=== PATIENT | female | born 1990 | race Caucasian/White ===

== ENCOUNTER 2017-08-24 07:17 | Inpatient (IN) | payer BC ==
[~2017-08-24] VITALS: Ht 165.1 cm; Wt 95.5 kg
[~2017-08-24 07:17] MED LIST: BCPILLS PO
[2017-08-24 08:43] VITALS: Ht 165.1 cm; Wt 95.5 kg
[2017-08-24] MEDS ORDERED: PRENTAB26 PO (08:48)
[2017-08-24] MEDS ORDERED: LACTATED RINGER'S 1000ML 1,000 ML IV PRN (09:14)
[2017-08-24] MEDS ORDERED: MISOPROSTOLTAB 50 MCG TAB PO ONE (09:15)
[2017-08-24 09:48] LABS: HEMATOCRIT 38.3 % (37-47); MEAN CELL VOLUME 89.7 fL (80-100); MEAN CORPUSCULAR HGB CONC 33.4 g/dl (32-36); MEAN PLATELET VOLUME 10.8 fL (7.4-10.4); PLATELET COUNT 212 K/uL (130-400); RED BLOOD COUNT 4.27 M/uL (4.2-5.4); WHITE BLOOD COUNT 10.78 K/uL (4.8-10.8)
[2017-08-24] MEDS ORDERED: LACTATED RINGER'S 1000ML 500 ML IV PRN ×2 (14:52→19:38)
[2017-08-24] MEDS ORDERED: OXYTOCIN 30 UNITS/500ML NSS IV PRN (15:00)
[2017-08-24] MEDS: LACTATED RINGER'S 1000ML 1,000 ML IV SCH ×2 (18:06→19:54)
[2017-08-24] MEDS ORDERED: FENTANYL 2MCG/ML ROPIV 1.25MG/ML 100ML BAG EPI ONE (18:55)
[2017-08-24] MEDS ORDERED: BUPIVACAINE 0.25% 30 ML VIAL ONE (18:55)
[2017-08-24] MEDS ORDERED: FENTANYL CITRATE INJ 50 MCG/1 ML 2 ML VIAL ONE (18:55)
[2017-08-24] MEDS ORDERED: EpHEDrine SULFATE INJ 50 MG/ML AMP ONE (18:55)
[2017-08-24] MEDS ORDERED: NALOXONE HCL INJ 0.4 MG/1 ML VIAL/CARP IV PRN (19:45)
[2017-08-24] MEDS ORDERED: EpHEDrine SULFATE INJ 50 MG/ML AMP IV PRN (19:45)
[2017-08-25] VITALS (13 sets, daily range): BP systolic 111–117; BP diastolic 69–79; PULSE 90–111; TEMP 36.7–37.2; O2SAT 95–100
[2017-08-25] MEDS: FENTANYL 2MCG/ML ROPIV 1.25MG/ML 100ML BAG EPI PRN ×4 (03:18→09:14)
[2017-08-25] MEDS: LACTATED RINGER'S 1000ML 1,000 ML IV SCH (03:58)
[2017-08-25] MEDS ORDERED: CITRIC ACID/SODIUM CITRATE 15 ML UDC ONE (08:55)
[2017-08-25] MEDS ORDERED: LACTATED RINGER'S 1000ML 1,000 ML IV SCH (08:58)
[2017-08-25] MEDS ORDERED: CITRIC ACID/SODIUM CITRATE 15 ML UDC PO ONE (09:00)
[2017-08-25] MEDS ORDERED: MoRPHine SULFATE PF 1 MG/ML 10 ML AMP/VIAL ONE (09:22)
[2017-08-25] MEDS ORDERED: CEFAZOLIN IV 3,000 MG in SYRINGE 0 ML IV ONE (09:30)
[2017-08-25] MEDS ORDERED: ESMOLOL HCL 10 MG/ML 10 ML VIAL ONE (10:53)
[2017-08-25] MEDS ORDERED: PROPOFOL IV EMULSION 10 MG/ML 20 ML VIAL IV ONE (10:53)
[2017-08-25] MEDS ORDERED: ONDANSETRON INJ 2 MG/ML 2 ML VIAL ONE (10:53)
[2017-08-25] MEDS ORDERED: OXYTOCIN INJ 10 UNITS/ML VIAL ONE ×4 (10:53)
[2017-08-25] MEDS ORDERED: METOCLOPRAMIDE HCL INJ 5 MG/ML 2 ML VIAL ONE (10:53)
[2017-08-25] MEDS ORDERED: HYDROCORTISONE ACETATE 25 MG SUPP PR PRN (11:00)
[2017-08-25] MEDS ORDERED: MAGNESIUM HYDROXIDE SUSP 30 ML UDC PO PRN (11:00)
[2017-08-25] MEDS ORDERED: DIPHTHERIA/TETANUS/PERTUSSIS 0.5 ML SYR/VIAL IM. ONE (11:00)
[2017-08-25] MEDS ORDERED: LANOLIN OINT EXT PRN ×2 (11:00)
[2017-08-25] MEDS ORDERED: BENZOCAINE 20% AER SPR 82.5 GM CAN EXT PRN (11:00)
[2017-08-25] MEDS ORDERED: SENNA 8.6 MG TAB PO PRN (11:00)
[2017-08-25] MEDS ORDERED: SUPERCREAM 0.870 % 15GM JAR EXT PRN (11:00)
[2017-08-25] MEDS ORDERED: NALOXONE HCL INJ 1 MG in SODIUM CHLORIDE 0.9% 1000ML 1,000 ML IV PRN ×4 (11:05)
[2017-08-25] MEDS ORDERED: SODIUM CHLORIDE 0.9% 1000ML 1,000 ML IV PRN (11:05)
[2017-08-25] MEDS ORDERED: NALOXONE HCL INJ 0.08 MG in SYRINGE 1.8 ML IV PRN (11:05)
[2017-08-25] MEDS ORDERED: LACTATED RINGER'S 1000ML 500 ML IV PRN (11:05)
--- NOTE | 2017-08-25 11:08 | Anesthesia Procedure Note ---
Anesthesia Epidural Removal Nt Date & Time Aug 25, 2017 at 11:07 Notes Mental Status: alert / awake / arousable, participated in evaluation Nausea / Vomiting: adequately controlled Pain: adequately controlled Airway Patency, RR, SpO2: stable & adequate BP & HR: stable & adequate Hydration State: stable & adequate Neuraxial Anesthesia: was administered Anesthetic Complications: no major complications apparent, pt satisfied with anesthetic care Epidural: removed without complications, with tip intact
[2017-08-25] MEDS ORDERED: PROMETHAZINE HCL INJ 12.5 MG in SODIUM CHLORIDE 0.9% 50ML 50 ML IV PRN ×4 (11:15)
[2017-08-25] MEDS ORDERED: DiphenhydrAMINE HCL 50 MG/ML VIAL IV PRN (11:15)
[2017-08-25] MEDS ORDERED: NALOXONE HCL 0.4 MG/1 ML VIAL/CARP IV PRN (11:15)
[2017-08-25] MEDS ORDERED: LABETALOL HCL IV 5 MG/ML 20ML IV PRN (11:15)
[2017-08-25] MEDS ORDERED: ATROPINE SULFATE 0.1 MG/ML 5ML SYR IV PRN (11:15)
[2017-08-25] MEDS ORDERED: ONDANSETRON INJ 2 MG/ML 2 ML VIAL IV PRN ×2 (11:15)
[2017-08-25] MEDS ORDERED: KETOROLAC TROMETHAMINE 30 MG/ML VIAL IV. PRN ×2 (11:15)
[2017-08-25] MEDS ORDERED: MoRPHine SULFATE PF 1 MG/ML 10 ML AMP/VIAL EPI PRN (11:15)
[2017-08-25] MEDS ORDERED: NALBUPHINE HCL INJ 10 MG/ML AMP IV PRN (11:15)
[2017-08-25] MEDS ORDERED: PHENYLEPHRINE 100MCG/ML 5ML SYR IV PRN (11:15)
[2017-08-25] MEDS ORDERED: NO NARCOTICS OR SEDATIVES SCH (11:15)
[2017-08-25] MEDS ORDERED: EpHEDrine SULFATE INJ 50 MG/ML AMP IV PRN (11:15)
[2017-08-25] MEDS ORDERED: MEPERIDINE HCL 25 MG/ML CARP IV PRN ×2 (11:15)
--- NOTE | 2017-08-25 11:15 | [facility] Post Operative Brief Note ---
Immediate Operative Summary Operative Date Aug 25, 2017. Pre-Operative Diagnosis 1. IUP at 40 weeks 2. Failure to descend Post-Operative Diagnosis Same Procedure(s) Performed Primary low transverse caesarean section with the of a live male child at 1004. Surgeon Dr. Lyn Vascular Technologist Sonographer Surgeon(s) Fabby Chen RN Estimated Blood Loss 800ml Findings Patient delivered a viable male infant in the vertex position via PLTCS at 1004 on 08/25/17. APGARs were 8 at 1 minute and 9 at 5 minutes weighing 8 lbs 11 oz. Cord blood gases and cord blood was obtained. An intact placenta with a 3 VC delivered manually and sent to pathology. Grossly normal uterus and bilateral tubes and ovaries noted. Both patient and baby tolerated the surgery well and was sent to recovery with stable vital signs. Fluids (cc crystalloids) 2000 Specimens A: Placenta-exam B: Cord Blood C: Cord Gases Drains Duran to [place] Complication(s) None Disposition L&D
[2017-08-25] MEDS ORDERED: OXYTOCIN INJ 30 UNITS in LACTATED RINGER'S 1000ML 1,000 ML IV SCH (11:30)
--- NOTE | 2017-08-25 13:08 | Anesthesiology Progress Note ---
Anesthesia Post Op Note Date & Time Aug 25, 2017 at 13:07 Notes Mental Status: alert / awake / arousable, participated in evaluation Pt Amnestic to Procedure: Yes Nausea / Vomiting: adequately controlled Pain: adequately controlled Airway Patency, RR, SpO2: stable & adequate BP & HR: stable & adequate, see Notes Hydration State: stable & adequate Neuraxial Anesthesia: was administered, sensory block is resolving Anesthetic Complications: no major complications apparent The patient is doing well. She is slightly tachycardic but less then she was postoperatively. All other vitals are stable and she is comfortable.
[2017-08-25] MEDS: SIMETHICONE 80 MG CHEW PO SCH ×3 (13:30→19:52)
[2017-08-25] MEDS: DOCUSATE SODIUM 100 MG CAP PO SCH (19:52)
--- NOTE | 2017-08-25 19:56 | OPERATIVE REPORT ---
DATE OF OPERATION: 08/25/2017 PREOPERATIVE DIAGNOSES: 1. Intrauterine at 40 weeks and 4 days gestation. 2. Failure to progress. POSTOPERATIVE DIAGNOSES: 1. Intrauterine at 40 weeks and 4 days gestation. 2. Failure to progress. OPERATIVE PROCEDURE: Primary low transverse section. SURGEON: Dr. Lyn. CASH REGISTER BALANCER: Fabby Hartmann RN ANESTHESIA: Epidural bolus. ESTIMATED BLOOD LOSS: 800 mL IV FLUIDS: 2000 mL crystalloids. SPECIMENS: Placenta, cord blood and cord gases. DRAINS: Duran to gravity. COMPLICATIONS: None. DISPOSITION: To labor and delivery. FINDINGS: The patient delivered a viable male in the vertex position at 10:04 a.m. via primary low transverse section. Apgars were 7 at 1 minute and 9 at 5 minutes, weighing 8 pounds 11 ounces. Please see rn rehabilitation's notes for further baby assessment. An intact placenta with 3-vessel cord was delivered manually and sent to pathology. Cord blood and cord blood gases were obtained. Normal uterus and bilateral tubes and ovaries were noted. The patient and baby tolerated the surgery well and were in recovery with stable vital signs. INDICATIONS FOR PROCEDURE The patient is a 27-year-old 2, para 0 at 40 weeks and 4 days gestation, who was admitted to labor and delivery on the morning of 08/24/2017 for a scheduled induction of labor secondary to postdates. She received one dose of Cytotec 25 mcg intravaginally and Pitocin afterwards for labor induction. She received an epidural for anesthesia. Artificial rupture of membranes was performed at 21:52 with a large amount of clear amniotic fluid noted. She reached complete dilation at 3:06 a.m. on 08/25/2017. She pushed for greater than 4 hours without further descent. She reached complete dilation, 100% effaced and +2 station. Despite excellent pushing efforts, there was no further descent of the baby. Therefore, a primary section was recommended and the patient and agreed. Benefits, risks and alternatives were discussed and informed consent was obtained. OPERATIVE PROCEDURE IN DETAIL: The patient was taken to the operating room and was placed in a dorsal supine position with left lateral tilt. Her epidural was bolused. She was then prepped and draped in a manner appropriate for the procedure. Once anesthesia was found to be adequate, a Pfannenstiel skin incision was made 2 fingerbreadths above the pubic symphysis and was carried down through to a layer of the rectus fascia. Fascia was nicked in the midline and extended bilaterally with curved Patel scissors. The superior aspect of the fascial incision was grasped with Cj clamps, elevated, and the rectus muscles were dissected off with the use of the electrocautery and curved Patel scissors. Likewise, the inferior aspect of the fascial incision was grasped with Cj clamps, elevated, and the rectus muscles were dissected off with the use of curved Patel scissors. Rectus muscles were in midline. The peritoneum was entered bluntly and extended cephalocaudally with gentle traction. An Logan retractor was then placed within the abdomen and the bladder blade was also placed within the abdomen. The vesicouterine peritoneum was then identified and a bladder flap was created with the Metzenbaum scissors and digital traction. The bladder flap was reincorporated beneath the Shantelle blade. A transverse incision was then made on the uterus and extended bilaterally with bandage scissors. The head was identified. It was noted that the head was deep within the pelvis. Once the suction was broken, the baby's head was delivered through the incision along with the rest of the body. Baby was bulb suctioned at delivery. Cord was clamped x2 and cut. The baby was immediately handed to an awaiting rn rehabilitation for further evaluation and management. Please see their notes for further baby assessment. Cord blood gases and cord blood was obtained. An intact placenta with 3-vessel cord was delivered manually and sent to pathology. The uterus was then exteriorized and wrapped in a moist laparotomy sponge. The uterus was then cleared of any trailing membranes and debris with the laparotomy sponge. The uterine incision was then grasped with ringed forceps at 4 quadrants and was closed with 0 Vicryl suture in a continuous locking fashion. A second layer of 0 Vicryl suture was used in imbricating fashion to ensure hemostasis. The posterior cul-de-sac was then irrigated with warm saline solution. Inspection of the uterine incision was again noted to be hemostatic. The bladder flap was reapproximated to the lower uterine segment with 3-0 Vicryl suture in continuous running fashion. Excellent hemostasis was noted. Seprafilm was placed over the incision and along the fundus of the uterus. The uterus was then placed back within its normal anatomic position within the abdomen. The Logan retractor was then removed. The peritoneum was then grasped with Jenny clamps at 4 quadrants and was closed with 2-0 Vicryl suture in continuous running fashion. The rectus fascia was then closed with 0 Vicryl suture in continuous running fashion. The incision was then irrigated. The subcutaneous tissue was then reapproximated with 2-0 Vicryl suture in continuous running fashion. The skin was then closed with maura. Excellent hemostasis was noted through all tissue layers. Both patient and baby tolerated the procedure well and were sent to recovery with stable vital signs. All sponge and instrument counts were found to be correct x2. I attest to the content of the Intraoperative Record and any orders documented therein. Any exceptions are noted below. JUAN CARLOSD
[2017-08-26] VITALS (7 sets, daily range): BP systolic 99–121; BP diastolic 63–76; PULSE 82–105; TEMP 36.6–37; O2SAT 95–98
[2017-08-26] MEDS: LACTATED RINGER'S 1000ML 1,000 ML IV SCH (00:07)
[2017-08-26] MEDS ORDERED: ONDANSETRON INJ 2 MG/ML 2 ML VIAL IV PRN (03:00)
[2017-08-26] MEDS ORDERED: OXYCODONE/ACETAMINOPHEN 5-325 TAB PO PRN (03:00)
[2017-08-26] MEDS ORDERED: DC INTRASPINAL MORPHINE SCH (03:00)
[2017-08-26] MEDS ORDERED: KETOROLAC TROMETHAMINE 30 MG/ML VIAL IV. PRN (03:00)
[2017-08-26] MEDS ORDERED: DiphenhydrAMINE HCL 50 MG/ML VIAL IV PRN (03:00)
[2017-08-26] MEDS: OXYCODONE/ACETAMINOPHEN 5-325 TAB PO PRN ×3 (05:23→21:43)
[2017-08-26] MEDS: IBUPROFEN 600 MG TAB PO PRN ×3 (05:24→21:42)
[2017-08-26] MEDS ORDERED: CEFAZOLIN IV 3,000 MG in DEXTROSE 5% 50ML 50 ML IV SCH (06:00)
[2017-08-26 07:26] LABS: BASO % 0.1 %; BASO ABS # 0.02 K/uL (0-0.2); COMPLETE YES; EOS % 0.2 %; HEMATOCRIT 30.1 % (37-47); IG% 0.3 %; LYMPH % 9.6 %; LYMPH ABS # 2.02 K/uL (1.2-3.4); MEAN CELL VOLUME 89.3 fL (80-100); MEAN CORPUSCULAR HEMOGLOBIN 29.4 pg (25-34); MEAN CORPUSCULAR HGB CONC 32.9 g/dl (32-36); MEAN PLATELET VOLUME 10.7 fL (7.4-10.4); MONO % 5.9 %; NEUT % 83.9 %; PLATELET COUNT 192 K/uL (130-400); RED BLOOD COUNT 3.37 M/uL (4.2-5.4); WHITE BLOOD COUNT 21.09 K/uL (4.8-10.8)
[2017-08-26] MEDS: SIMETHICONE 80 MG CHEW PO SCH ×4 (08:18→21:42)
[2017-08-26] MEDS: PRENATAL VITAMIN TAB PO SCH (08:18)
[2017-08-26] MEDS: DOCUSATE SODIUM 100 MG CAP PO SCH ×2 (08:18→21:41)
[2017-08-26] MEDS: FERROUS SULFATE 325 MG TAB PO SCH (08:18)
--- NOTE | 2017-08-26 11:45 | OB/GYN Progress Note ---
FLASH WELDER Progress Note Date of Service Aug 26, 2017. Subjective conversation w/ patient, physical exam Ambulation: ambulating normally Voiding: no voiding problems Passing Gas: Yes Diet Tolerance: Clear Liquids Lochia: Small Feeding Type: Breast Feeding Pain: 2/10 Notes: Doing well. Pain well controlled. Tolerating liquids, +flatus, -BM. Ambulating without difficulty. Lochia minimal. Incision clean/dry/intact. Objective Vital Signs Date Time Temp Pulse Resp B/P (MAP) Pulse Ox O2 Delivery O2 Flow Rate FiO2 08/26/17 07:40 36.8 82 18 99/63 (75) 97 Room Air 08/26/17 07:40 97 Room Air 08/26/17 04:45 36.9 98 18 103/65 (78) 97 Room Air 08/26/17 03:03 18 96 08/26/17 02:00 18 96 08/26/17 01:00 18 95 08/26/17 00:10 18 96 08/26/17 00:10 37.0 91 18 116/72 (87) 96 Room Air 08/26/17 00:10 96 Room Air 08/25/17 23:00 18 95 08/25/17 22:30 16 99 08/25/17 21:30 16 100 08/25/17 20:30 16 99 08/25/17 20:10 36.7 92 16 115/79 (91) 100 Room Air 08/25/17 19:30 16 100 08/25/17 18:30 16 100 08/25/17 17:30 16 100 08/25/17 16:30 15 98 08/25/17 16:00 37.2 90 16 111/69 (83) 97 Room Air 08/25/17 16:00 Room Air 08/25/17 15:30 16 97 08/25/17 14:30 18 96 08/25/17 13:30 95 Room Air 08/25/17 13:30 37.1 111 20 117/70 (86) 95 Room Air 08/25/17 13:30 20 95 Physical Exam General Appearance: WELL-APPEARING Respiratory/Chest: chest non-tender, lungs clear Cardiovascular: regular rate, rhythm Abdomen: normal bowel sounds, soft Fundus: Firm Incision Description: Clean, Dry & Intact Extremities: normal range of motion, non-tender, no calf tenderness Laboratory Results Last 24 Hours Test 08/26/17 06:51 White Blood Count 21.09 K/uL Red Blood Count 3.37 M/uL Hemoglobin 9.9 g/dL Hematocrit 30.1 % Mean Corpuscular Volume 89.3 fL Mean Corpuscular Hemoglobin 29.4 pg Mean Corpuscular Hemoglobin Concent 32.9 g/dl Platelet Count 192 K/uL Mean Platelet Volume 10.7 fL Neutrophils (%) (Auto) 83.9 % Lymphocytes (%) (Auto) 9.6 % Monocytes (%) (Auto) 5.9 % Eosinophils (%) (Auto) 0.2 % Basophils (%) (Auto) 0.1 % Neutrophils # (Auto) 17.70 K/uL Lymphocytes # (Auto) 2.02 K/uL Monocytes # (Auto) 1.25 K/uL Eosinophils # (Auto) 0.04 K/uL Basophils # (Auto) 0.02 K/uL RDW Standard Deviation 46.6 fL RDW Coefficient of Variation 14.2 % Immature Granulocyte % (Auto) 0.3 % Immature Granulocyte # (Auto) 0.06 K/uL Assessment and Plan Post-Op Day Number: 1 Continue Routine Care: -Incision c/d/i -H&H stable this morning with Hgb 9.9 -Advance diet and activity as tolerated. -Continue routine postop care
[2017-08-26] MEDS ORDERED: BISACODYL 5 MG TABEC PO ONE (22:00)
[2017-08-27] VITALS: BP 108/67; PULSE 81; TEMP 36.7; O2SAT 98
[2017-08-27 06:13] LABS: HEMATOCRIT 25.8 % (37-47)
[2017-08-27] MEDS: IBUPROFEN 600 MG TAB PO PRN ×4 (06:17→20:32)
[2017-08-27] MEDS: OXYCODONE/ACETAMINOPHEN 5-325 TAB PO PRN ×4 (06:17→20:33)
[2017-08-27] MEDS: PRENATAL VITAMIN TAB PO SCH (07:44)
[2017-08-27] MEDS: DOCUSATE SODIUM 100 MG CAP PO SCH ×2 (07:44→20:32)
[2017-08-27] MEDS: SIMETHICONE 80 MG CHEW PO SCH ×4 (07:44→20:32)
[2017-08-27] MEDS: FERROUS SULFATE 325 MG TAB PO SCH (07:44)
[2017-08-27 07:55] VITALS: O2SAT 98
--- NOTE | 2017-08-27 09:30 | Surgery Progress Note ---
Surgery Progress Note Date of Service Aug 27, 2017. Subjective Post OP Day: 2 + feeling well, + ambulating, + flatus, + pain controlled, + diet (Tolerating PO food and Meds), No complaints, No chest pain, No SOB, No bowel movement, No using RADIAGRAPH OPERATOR, No nausea, No vomiting Objective Vital Signs: Date Time Temp Pulse Resp B/P (MAP) Pulse Ox O2 Delivery O2 Flow Rate FiO2 08/27/17 07:55 98 Room Air 08/27/17 00:00 Room Air 08/27/17 00:00 36.7 81 16 108/67 (81) 98 Room Air 08/26/17 16:10 98 Room Air 08/26/17 16:10 36.6 105 20 121/76 (91) 98 Room Air General Appearance: WD/WN, no apparent distress Head: normocephalic, atraumatic Neck: supple, no adenopathy, thyroid normal, no JVD, no carotid bruits, trachea midline Respiratory/Chest: chest non-tender, lungs clear, normal breath sounds, no respiratory distress, no accessory muscle use Cardiovascular: regular rate, rhythm, no edema, no gallop, no JVD, no murmur Abdomen: normal bowel sounds, non tender, non distended, soft, no organomegaly , no pulsatile mass Incision(s): clean, dry, intact, no erythema, no drainage Extremities: normal range of motion, non-tender, normal inspection, no pedal edema, no calf tenderness, normal capillary refill, pelvis stable Laboratory Results: Results Past 24 Hours Test 08/27/17 06:00 Range/Units Hemoglobin 8.3 12.0-16.0 g/dL Hematocrit 25.8 37-47 % Assessment & Plan c/sec day #2 Pt doig well anticipate disch tomorrow
[2017-08-27] MEDS ORDERED: BISACODYL 10 MG SUPP PR PRN (11:00)
[2017-08-27 15:52] VITALS: O2SAT 98
[2017-08-27 23:30] VITALS: BP 146/88; PULSE 90; TEMP 36.7
[2017-08-28] MEDS: OXYCODONE/ACETAMINOPHEN 5-325 TAB PO PRN ×2 (03:49→09:04)
[2017-08-28] MEDS: IBUPROFEN 600 MG TAB PO PRN ×2 (03:49→09:05)
[2017-08-28 07:40] VITALS: BP 114/76; PULSE 71; TEMP 36.6
--- NOTE | 2017-08-28 07:59 | Surgery Progress Note ---
Surgery Progress Note Date of Service Aug 28, 2017. Subjective Post OP Day: 2 + feeling well, + ambulating, + flatus, + pain controlled, + diet (Tolerating PO food and meds), No complaints, No chest pain, No SOB, No bowel movement, No using PARTS LISTER, No nausea, No vomiting Objective Vital Signs: Date Time Temp Pulse Resp B/P (MAP) Pulse Ox O2 Delivery O2 Flow Rate FiO2 08/27/17 23:30 Room Air 08/27/17 23:30 36.7 90 18 146/88 08/27/17 15:52 98 Room Air General Appearance: WD/WN, no apparent distress Head: normocephalic, atraumatic Neck: supple, no adenopathy, thyroid normal, no JVD, no carotid bruits, trachea midline Respiratory/Chest: chest non-tender, lungs clear, normal breath sounds, no respiratory distress, no accessory muscle use Cardiovascular: regular rate, rhythm, no edema, no gallop, no JVD, no murmur Abdomen: normal bowel sounds, non tender, non distended, soft, no organomegaly , no pulsatile mass Incision(s): clean, dry, intact, no erythema, no drainage Extremities: normal range of motion, non-tender, normal inspection, no pedal edema, no calf tenderness, normal capillary refill, pelvis stable Assessment & Plan c/sec day #3 Pt doig well disch home with instructions c/sec day #2 Pt doig well anticipate disch tomorrow
[2017-08-28] MEDS ORDERED: MTR600X PO (08:02)
[2017-08-28] MEDS ORDERED: FRRS300 PO (08:02)
[2017-08-28] MEDS ORDERED: OXYC-57 PO (08:02)
[2017-08-28] MEDS ORDERED: CLC100 PO (08:02)
--- NOTE | 2017-08-28 08:03 | Discharge Instructions ---
Discharge Instructions Date of Service Aug 28, 2017. Admission Reason for Admission: Induction Discharge Discharge Diagnosis / Problem: c/sec post op Discharge Goals Goal(s): Routine recovery after Activity Recommendations Activity Limitations: as noted below ACTIVITY RECOMMENDATIONS: * Gradual return to full activity over the next 2-3 weeks. * No lifting - nothing heavier than baby over the next 2-3 weeks. * Do not engage in vigorous exercise, sexual activity or sports until cleared by your physician. * Do not drive or operate any motorized equipment until cleared by your physician. * You may shower/bathe daily. BREAST CARE: If you are not breast feeding: * Wear a supportive bra 24 hours a day for one to two weeks. * Avoid stimulating your breasts and nipples as much as possible during the first few weeks after delivery. * When taking a shower, have the warm water hit your back, not breasts. * When your breasts feel full, apply ice packs. Usually three to four times a day helps ease the discomfort. * Take a mild pain medication (Tylenol/Motrin) when you are uncomfortable. If breast feeding: * Use breast milk to lubricate nipples. Lansinoh cream may be used for sore nipples. You do not need to remove cream prior to breast feeding. If using a different brand of cream, check the label for directions regarding removal of cream prior to nursing. * Wear a supportive bra. * If having problems with breasts or breast feeding, call a medical cost consultant or your health care provider. OVER THE COUNTER MEDICATION: * For discomfort or pain, you may use Acetaminophen (Tylenol), Ibuprofen (Advil ), or Naproxen (Aleve) following the package directions. * For constipation you may use Colace following the package directions. SPECIAL CARE INSTRUCTIONS: When you are discharged from the hospital, it is important for you to follow the instructions listed below: * During the first week at home, you should be able to care for yourself and your baby. In addition, the usual light household activities are encouraged. * Limit your activities to the way you feel. Do not try to clean the house or move furniture. Be sensible. * If you actively engage in sports and have done so up until the time of your delivery, you may resume these activities as soon as you feel able. This may take up to one month or even longer. Use good judgment. * Continue to take your vitamins for at least six weeks after the of your baby. * Your diet need not be limited unless you were on a special diet before your delivery. Breast-feeding mothers need around 2500 calories per day and at least 64-80 ounces of fluid per day (8 to 10 glasses). * You should eat foods from the four major food groups. Crash diets or fad diets are to be avoided. Eating lean meats, fresh fruits and vegetables, low-fat dairy products, high fiber foods and a regular exercise program, will help you get back to your pre- weight without putting your health at risk. * Constipation is sometimes a problem after delivery. Take a mild laxative as needed. If breast feeding, Milk of Magnesia is acceptable to use. You may use a suppository or Fleets enema if no episiotomy. * A daily shower or tub bath is suggested. Be sure to thoroughly and gently dry the perineum. * A bloody vaginal discharge will usually continue until around four weeks post . A small amount of bleeding may continue for as long as six weeks. Vaginal discharge changes from the bright red bleeding after delivery to pink then brownish and finally yellowish-pink before becoming white and disappearing. * Bleeding may increase with activity. Your first period may come in 4-8 weeks. If you are breast feeding, your period may be delayed even longer. * Alex (sex) can begin whenever both you and your partner feel comfortable and do not have any form of genital infection. It is recommended that you wait at least six weeks for internal and external healing to occur. If you have questions, please talk to your health care practitioner. A condom should be used to prevent infection and . * Foreplay, gentle intercourse and lubrication is very important the first several times to prevent pain. A water-based lubricant such as K-Y jelly or Astroglide may be used. * Tampons and/or Douching should be avoided until after six weeks check-up. * If you have RH negative blood and your baby is RH positive, you will receive RHOGAM by injection prior to discharge. The nurse will give you a card to keep with you that has the date and place that you received RHOGAM after delivery. * During your care, you had a Rubella screen done to check for the presence of rubella antibodies in your blood. If your test was negative, you will receive a Rubella vaccine prior to discharge. This vaccine may cause a fever, soreness at the injection site and flu-like symptoms. If these symptoms persist, notify your health care practitioner. is not advised for three months after a Rubella vaccine. * Verbalizes understanding of car seat law as reviewed with patient nursing. * Car Seat hand-out given and reviewed with patient by nursing. * Shaken baby information reviewed with patient by nursing. Call you doctor if: * Heavy bleeding (saturating several pads an hour) or passing clots the size of your fist. * A fever >101 degrees F (38.3 degrees C) on two occasions four hours apart and /or chills. * Unusual pain in the pelvic or vaginal areas. Pain should improve each day . * Call the doctor for any increased redness, drainage or swelling around the incision and any pain unrelieved by prescribed pain medication. * Any signs or symptoms of phlebitis (possible blood clots forming in the veins ): leg pain, warm, red or swollen area on leg. * "Baby Blues" lasting longer than two weeks. If you have any questions or concerns, call your health care practitioner at . FOLLOW-UP VISIT: * Incision check (staple removal) in 1 week. Please call doctor's office at to set up appointment. * Please call the office at to schedule a 6 week examination. It is important you keep this appointment. * It is important for you to make arrangements for either yearly or twice yearly check-ups thereafter. . Current Hospital Diet Patient's current hospital diet: Regular OB Diet Discharge Diet Recommended Diet: Regular Diet Procedures Procedures Performed: Primary low transverse caesarean section with the of a live male child at 1004. Pending Studies Studies pending at discharge: no Medical Emergencies . Who to Call and When: Medical Emergencies: If at any time you feel your situation is an emergency, please call [phone] immediately. . Non-Emergent Contact Non-Emergency issues call your: Specialist . . "Provider Documentation" section prepared by Zheng Collins. . VTE Core Measure Inpt VTE Proph given/why not?: Treatment not indicated
[2017-08-28] MEDS: DOCUSATE SODIUM 100 MG CAP PO SCH (09:01)
[2017-08-28] MEDS: SIMETHICONE 80 MG CHEW PO SCH (09:01)
[2017-08-28] MEDS: PRENATAL VITAMIN TAB PO SCH (09:01)
[2017-08-28] MEDS: FERROUS SULFATE 325 MG TAB PO SCH (09:01)
[2017-08-28 12:30] VITALS: BP_DIAS 76; PULSE 71; TEMP 36.6
== END 2017-08-28 13:15 | disposition home or self-care (01) | DRG 766 ==
LOC: C.LD 07:17 → C.OBG 08-25 13:15
PROVIDERS: ADMIT Obstetrics & Gynecology; ATTEND Obstetrics & Gynecology
PROC: 10D00Z1 Extraction of Products of Conception, Low, Open Approach (ICD-10-PCS; principal; 2017-08-25 09:05)
DX: O48.0 Post-term pregnancy (principal); O66.40 Failed trial of labor, unspecified; O69.81X1 Labor and delivery complicated by cord around neck, without compression, fetus 1; Z37.0 Single live birth; Z3A.40 40 weeks gestation of pregnancy

== ENCOUNTER 2020-10-10 20:38 | Inpatient (IN) ==
[2020-10-10] MEDS ORDERED: OXYTOCIN 30 UNITS/500 ML BAG IV PRN (21:26)
--- NOTE | 2020-10-10 21:40 | History & Physical Report ---
Date of Service October 10, 2020 Assessment & Plan (1) History of delivery: Patient is a 30-year-old -0-0-1 at 38 weeks and 3 days of gestation presented in active labor with regular contractions contractions change Vital signs stable afebrile GBS negative heart rate reassuring Patient has questions about TOLAC/ versus repeat . I gave her the consent with information from [employer], with risks and benfits of each Understands the risk of uterine furpture, hypoxia , even She read all lines and decided for TOLAC/ She initialed the risks and signed the informed consent Plan to admit, monitor, IVF, AROM and epidural when needed She declined epidural now (2) Active labor at term: (3) Uterine contractions at greater than 20 weeks of gestation: History of Present Illness Primary Care Provider: Michael Burris MD Patient is a 30-year-old at 38 weeks and 2 days of gestation. Has been feeling contractions since 6:20 PM, got more closer and regular every 5 min, lasting for 30 sec, pain is 7/10 Small mucus d/c No VB Good movements No fever, chills, nausea or vomiting, no headaches, change in her vision. No COVID symptoms, no recent contact Previous except history of prior . To arrest of descent in second stage. She pushed for 6 hours had to have primary and delivered 8 pounds 11 ounces viable male in 2016. She plans and scheduled for on October 19. Rh- Allergies Allergy/AdvReac Type Severity Reaction Status Date / Time cefaclor Allergy Mild Unknown Unverified 03/31/19 15:17 Home Medications Medication Instructions Recorded Confirmed Type 1 cap PO DAILY 10/10/20 10/10/20 History Patient History Medical History delivery delivered 2016 Surgical History H/O tooth extraction 2002 History of placement of ear tubes pt was 1 year old 1990 Social History Smoking Status: Never smoker Hx Alcohol Use: No Hx Substance Use: No Preferred Language: Mohawk Communication Ability: Effective Retail Account Executive Required: No Beliefs That Will Affect Care: None marital status: Current Living Situation: Spouse Other Information That Helps Us Care for You: No Feels Safe at Home: Yes Safety Concerns: Feels Safe At This Time OB History See HPI DIE MOUNTER History Denies any history of STDs including chlamydia, gonorrhea, HSV. Review of Systems All systems reviewed & are unremarkable except as noted in HPI & below Physical Exam Constitutional: WD/WN, vitals as above well developed, well nourished and + acute distress (Distress with contractions otherwise comfortable) Gastrointestinal (Abdomen): normal bowel sounds, soft, nontender, no h epatosplenomegaly (Gravid, Unruly 7 of 8 pounds) Bedside ultrasound is done, vertex heart rate 150s, estimated weight 3470 g despite measuring head in pelvis. Genitourinary: normal external appearance Manual OB Exam: + cervical dilation 7 cm, + cervical effacement 90%, + station -1 and + amniotic fluid (AmniSure negative, bulging bag) OB Exam Monitor Tracing: + external uterine monitor used and + category I Results & Data ([facility]) Vital Signs (Past 12 Hours) Vital Signs Pulse BP 10/10/20 20:52 98 H 125/78
[2020-10-10] MEDS: LACTATED RINGER'S 1,000 ML IV PRN ×2 (21:45→23:55)
[2020-10-10 21:51] LABS: Hematocrit (blood only) 35.2 % (37-47); Hemoglobin 11.7 g/dL (12.0-16.0); Mean Corpuscular Hemoglobin 29.9 pg (25-34); Mean Corpuscular Hgb Conc 33.2 g/dL (32-36); Mean Platelet Volume 10.3 fL (7.4-10.4); Platelet Count 244 K/uL (130-400); RDW Coefficient of Variation 13.2 % (11.5-14.5); RDW Standard Deviation 42.8 fL (36.4-46.3); Red Blood Count 3.91 M/uL (4.2-5.4); White Blood Count 12.26 K/uL (4.8-10.8)
[2020-10-10] MEDS ORDERED: BUPIVACAINE 0.25% 30 ML VIAL ONE (21:54)
[2020-10-10] MEDS ORDERED: SODIUM CHLORIDE 0.9% INJ 10 ML VIAL ONE (21:54)
[2020-10-10] MEDS ORDERED: ePHEDrine sulfate 50 MG/ML AMP ONE (21:54)
[2020-10-10] MEDS ORDERED: fentaNYL citrate 100 MCG/2 ML VIAL ONE (21:55)
[2020-10-10] MEDS ORDERED: fentaNYL 2MCG/ML ROPIVACAINE 1.25MG/ML 100 ML BAG EPI ONE (21:56)
--- NOTE | 2020-10-10 22:43 | Anesthesiology Consultation ---
Date of Service October 10, 2020 Assessment & Plan Chart Review Chart Review: Acceptable Risk for Labor Epidural Consults Requested none History Height/Weight Height: 5 ft 5 in Weight: 96.6 kg Allergies Allergy/AdvReac Type Severity Reaction Status Date / Time cefaclor Allergy Mild Unknown Unverified 03/31/19 15:17 Medications Home Medications Medication Instructions Recorded Confirmed Last Taken 1 cap PO DAILY 10/10/20 10/10/20 10/09/20 Active Medications Generic Name Dose Route Start Last Admin Trade Name Freq PRN Reason Stop Dose Admin Lactated Ringer's 1,000 mls @ 125 mls/hr 10/10/20 21:26 10/10/20 21:45 Lr IV 10/12/20 21:25 999 mls/hr .Q8H PRN Administration L&D Protocol Protocol Past Medical History Medical History delivery delivered 2016 Past Surgical History Surgical History H/O tooth extraction 2002 History of placement of ear tubes pt was 1 year old 1990 Social History Smoking Status: Never smoker Hx Alcohol Use: No Hx Substance Use: No Physical Exam Vital Signs Last Vital Signs Temp 36.6 C 10/10/20 20:45 Pulse 99 H 10/10/20 22:42 Resp 20 10/10/20 20:45 BP 139/81 10/10/20 22:42 Pulse Ox 99 10/10/20 22:40 Testing Laboratory Results 10/10/20 21:43
[2020-10-10] MEDS ORDERED: NALOXONE HCL 1 MG in SODIUM CHLORIDE 0.9% 1000ML 1,000 ML IV PRN (22:45)
[2020-10-10] MEDS ORDERED: ePHEDrine sulfate 50 MG/ML AMP IV PRN (22:45)
[2020-10-10] MEDS ORDERED: fentaNYL 2MCG/ML ROPIVACAINE 1.25MG/ML 100 ML BAG EPI PRN (22:45)
[2020-10-10] MEDS ORDERED: NALOXONE HCL 0.4 MG/1 ML VIAL/CARP IV PRN (22:45)
[2020-10-10] MEDS ORDERED: diphenhydrAMINE 50 MG/ML VIAL IV PRN (22:45)
--- NOTE | 2020-10-11 00:14 | Obstetrical Progress Note ---
Date of Service October 11, 2020 Assessment & Plan Admission and Anticipated Discharge Date Admission Date: October 10, 2020 Subjective Patient received epidural and AROM'ed She was found to be fully dilated and desired to push She has been pushing for the last 20 min FHR categ I Caput visible at introitus Continue to monitor Anticpated Results & Data ([facility]) Vital Signs (Past 12 Hours) Vital Signs Temp Pulse Resp BP Pulse Ox 10/11/20 00:10 137 H 98 10/11/20 00:05 105 H 98 10/11/20 00:02 114 H 138/63 10/11/20 00:00 111 H 98 10/10/20 23:57 103 H 89 L 10/10/20 23:55 97 H 100 10/10/20 23:50 101 H 99 10/10/20 23:49 114 H 90 10/10/20 23:45 100 H 119/68 99 10/10/20 23:40 100 H 98 10/10/20 23:35 104 H 97 10/10/20 23:32 99 H 122/72 10/10/20 23:30 98 H 99 10/10/20 23:25 106 H 100 10/10/20 23:20 103 H 100 10/10/20 23:15 105 H 122/71 99 10/10/20 23:10 113 H 99 10/10/20 23:05 110 H 98 10/10/20 23:00 109 H 132/84 98 10/10/20 22:55 104 H 99 10/10/20 22:50 106 H 98 10/10/20 22:45 103 H 98 10/10/20 22:44 101 H 139/76 10/10/20 22:42 99 H 139/81 10/10/20 22:40 110 H 134/78 99 10/10/20 22:38 110 H 140/78 10/10/20 22:36 104 H 135/76 10/10/20 22:35 106 H 99 10/10/20 22:34 104 H 135/79 10/10/20 22:32 97 H 138/80 10/10/20 22:30 103 H 138/76 99 10/10/20 22:25 104 H 99 10/10/20 22:20 103 H 99 10/10/20 22:15 100 H 99 10/10/20 20:52 98 H 125/78 10/10/20 20:45 36.6 C 20
[2020-10-11] MEDS ORDERED: MINERAL OIL 30 ML UDC ONE (00:20)
[2020-10-11] MEDS ORDERED: BENZOCAINE 20% AER SPR 82.5 GM CAN EXT PRN (00:50)
[2020-10-11] MEDS ORDERED: DIPHTHERIA/TETANUS/PERTUSSIS 0.5 ML SYR/VIAL IM ONE (00:50)
[2020-10-11] MEDS ORDERED: HYDROCORTISONE ACETATE 25 MG SUPP PR PRN (00:50)
[2020-10-11] MEDS ORDERED: MEASLES, MUMPS & RUBELLA VIRUS VIAL SQ ONE (00:50)
[2020-10-11] MEDS ORDERED: bisacodyL 10 MG SUPP PR PRN (00:50)
[2020-10-11] MEDS ORDERED: OXYTOCIN 30 UNITS/500 ML BAG IV PRN (00:50)
[2020-10-11] MEDS ORDERED: oxyCODONE/ACETAMINOPHEN 5mg/325mg TAB PO PRN (00:50)
[2020-10-11] MEDS ORDERED: SUPERCREAM 0.870% 15 GM JAR EXT PRN (00:50)
--- NOTE | 2020-10-11 02:32 | Delivery Summary ---
DATE OF OPERATION: 10/11/2020 TIME OF DELIVERY: 0028 hours. DETAILS OF DELIVERY: The patient is a 30-year-old G3, P1-0-0-1 at 38 weeks and 4 days of gestation. She presented to labor and delivery with regular contractions and in active labor with a cervix of 6-7 cm, 90%, -1 with a bulging bag. She has a history of prior and was scheduled for repeat next week. She decided to do TOLAC/ due to being in active labor. She received epidural for pain and membranes were ruptured. She rapidly progressed to full dilatation and desired to push. She pushed for about half an hour and delivered the head without difficulty. There was a nuchal cord around the neck x1 which was reduced. Shoulders were delivered with minimal traction. Baby was handed off to the mother where mouth and nose were suctioned. Cord was clamped x2 and cut at 1 minute delay. Cord blood was obtained. Vagina and perineum were checked for lacerations. There was a small second-degree laceration in the perineal area in the posterior fourchette, which was repaired with 2-0 Vicryl in a running locked fashion. Excellent hemostasis was achieved. Then there were small labial lacerations which were first degree on both labia. Those were repaired with [id number] stitches with 3-0 Vicryl on an SH needle. Excellent hemostasis was achieved. Rest of the vagina was intact. Placenta was found to be in the vagina, delivered spontaneous as intact and complete. Uterus was explored, found to be empty. Lower segment was cleared of all clots and debris. EBL was 200 mL Mom and baby tolerated the procedure well. Sponge, lap, needle count was correct x3. Baby was a viable male infant, Apgars 8/9 and weight is 3641 gr. No complications happened and I was present during whole procedure. I attest to the content of the Intraoperative Record and any orders documented therein. Any exceptions are noted below. MTDD
[2020-10-11] MEDS: IBUPROFEN 600 MG TAB PO PRN ×4 (04:00→20:41)
[2020-10-11] MEDS: PRENATAL VITAMIN 1 TAB PO SCH (08:34)
[2020-10-11] MEDS: DOCUSATE SODIUM 100 MG CAP PO SCH ×2 (08:34→20:40)
--- NOTE | 2020-10-11 08:45 | Anesthesia Procedure Note ---
Date of Service October 11, 2020 Anesthesia Post Epidural Note Vital Signs Vital Signs: Temp Pulse Resp BP Pulse Ox 98.4 F 79 20 115/69 98 10/11/20 07:47 10/11/20 07:47 10/11/20 07:47 10/11/20 07:47 10/11/20 04:00 Pain Intensity Abdomen: Pain Intensity: 5 Notes Mental Status: alert / awake / arousable and participated in evaluation Nausea / Vomiting: adequately controlled Pain: adequately controlled Airway Patency, RR, SpO2: stable & adequate BP & HR: stable & adequate Hydration State: stable & adequate Neuraxial Anesthesia: was administered and sensory block is resolving Anesthetic Complications: no major complications apparent and Pt Satisfied with anesthetic care Epidural: Removed without complications and With tip intact
[2020-10-11] MEDS: FERROUS SULFATE 325 MG TAB PO SCH (11:33)
[2020-10-11] MEDS: ACETAMINOPHEN 325 MG TAB PO PRN ×2 (16:13→20:40)
[2020-10-12 06:30] LABS: Hematocrit (blood only) 34.6 % (37-47); Hemoglobin 11.3 g/dL (12.0-16.0); Mean Corpuscular Hemoglobin 29.7 pg (25-34); Mean Corpuscular Hgb Conc 32.7 g/dL (32-36); Mean Corpuscular Volume 90.8 fL (80-100); Mean Platelet Volume 10.5 fL (7.4-10.4); Platelet Count 259 K/uL (130-400); RDW Coefficient of Variation 13.7 % (11.5-14.5); RDW Standard Deviation 44.9 fL (36.4-46.3); Red Blood Count 3.81 M/uL (4.2-5.4)
--- NOTE | 2020-10-12 07:58 | Obstetrical Progress Note ---
Date of Service October 12, 2020 Assessment & Plan Admission and Anticipated Discharge Date Admission Date: October 10, 2020 Subjective Patient is seen and examined. She feels well, no complaints other than tail bone pain. Ambulating without dizziness Voiding without difficulty Tolerating regular diet with out N&V Bleeding is minimal No fever/ chills/ CP/ SOB/ N&V/ Leg pain Breast feeding without problems Vital Signs Temp Pulse Pulse Resp BP BP Pulse Ox 10/12/20 07:48 36.7 C 71 18 114/75 10/11/20 23:00 36.7 C 74 18 119/74 10/11/20 19:55 36.8 C 84 18 112/69 10/11/20 15:50 37.2 C 81 16 102/61 10/11/20 14:14 36.8 C 71 16 112/56 L 96 10/11/20 12:30 36.8 C 76 16 116/75 96 Lab Results 10/10/20 10/10/20 10/10/20 Range/Units 21:43 21:43 22:29 WBC 12.26 H (4.8-10.8) K/uL RBC 3.91 L (4.2-5.4) M/uL Hgb 11.7 L (12.0-16.0) g/dL Hct 35.2 L (37-47) % MCV 90.0 (80-100) fL MCH 29.9 (25-34) pg MCHC 33.2 (32-36) g/dL RDW Std Deviation 42.8 (36.4-46.3) fL RDW Coeff of Edi 13.2 (11.5-14.5) % Plt Count 244 (130-400) K/uL MPV 10.3 (7.4-10.4) fL COVID-19 Eval Order Covid19 [facility] SARS-CoV-2, RNA, NAAT (NEGATIVE) Blood Type O Negative Antibody Screen POSITIVE A Antibody Identification Anti-D due to RhIg Antibody ID Comment Screen (Negative) 10/10/20 10/11/20 10/12/20 Range/Units 22:29 11:42 06:03 WBC 13.10 H (4.8-10.8) K/uL RBC 3.81 L (4.2-5.4) M/uL Hgb 11.3 L (12.0-16.0) g/dL Hct 34.6 L (37-47) % MCV 90.8 (80-100) fL MCH 29.7 (25-34) pg MCHC 32.7 (32-36) g/dL RDW Std Deviation 44.9 (36.4-46.3) fL RDW Coeff of Edi 13.7 (11.5-14.5) % Plt Count 259 (130-400) K/uL MPV 10.5 H (7.4-10.4) fL COVID-19 Eval Order SARS-CoV-2, RNA, NAAT NEGATIVE (NEGATIVE) Blood Type O Negative Antibody Screen Cancelled Antibody Identification Antibody ID Comment Screen Negative (Negative) PE: General: Alert, orientedx3, NAD Abd: soft, NT, fundus firm, below Umbilicus Perineum intact, Lochia rubra minimal Ext; NT, no edema AP: 30 yo s/p , ppd# 1 VSS Afebrile doing well Continue routine care All questions were answered D/C home , f/u in office Results & Data ([facility]) Vital Signs (Past 12 Hours) Vital Signs Temp Pulse Resp BP 10/12/20 07:48 36.7 C 71 18 114/75 10/11/20 23:00 36.7 C 74 18 119/74
[2020-10-12] MEDS: ACETAMINOPHEN 325 MG TAB PO PRN ×3 (08:30→20:34)
[2020-10-12] MEDS: PRENATAL VITAMIN 1 TAB PO SCH (08:31)
[2020-10-12] MEDS: DOCUSATE SODIUM 100 MG CAP PO SCH ×2 (08:31→20:33)
[2020-10-12] MEDS: FERROUS SULFATE 325 MG TAB PO SCH (08:31)
[2020-10-12] MEDS: IBUPROFEN 600 MG TAB PO SCH ×3 (08:32→20:33)
[2020-10-12] MEDS ORDERED: bisacodyL 5 MG TABEC PO SCH (20:00)
[2020-10-13] MEDS: IBUPROFEN 600 MG TAB PO SCH ×3 (02:00→13:47)
[2020-10-13 06:19] LABS: Hemoglobin 10.3 g/dL (12.0-16.0)
--- NOTE | 2020-10-13 08:36 | Obstetrical Progress Note ---
Date of Service October 13, 2020 Assessment & Plan Admission and Anticipated Discharge Date Admission Date: October 10, 2020 Subjective PPD#2 stable passing gas tolerating diet Physical Exam Constitutional: WD/WN, vitals as above well developed and comfortable abdomen soft and non-tender for d/c Results & Data ([facility]) Vital Signs (Past 12 Hours) Vital Signs Temp Pulse Resp BP 10/12/20 23:45 36.8 C 71 20 122/73 Laboratory Results Laboratory Results - last 72 hr 10/10/20 10/10/20 10/10/20 21:43 21:43 22:29 WBC 12.26 H RBC 3.91 L Hgb 11.7 L Hct 35.2 L MCV 90.0 MCH 29.9 MCHC 33.2 RDW Std Deviation 42.8 RDW Coeff of Edi 13.2 Plt Count 244 MPV 10.3 COVID-19 Eval Order Cov[facility]19 [facility] SARS-CoV-2, RNA, NAAT Blood Type O Negative Antibody Screen POSITIVE A Antibody Identification Anti-D due to RhIg Antibody ID Comment Screen 10/10/20 10/11/20 10/12/20 22:29 11:42 06:03 WBC 13.10 H RBC 3.81 L Hgb 11.3 L Hct 34.6 L MCV 90.8 MCH 29.7 MCHC 32.7 RDW Std Deviation 44.9 RDW Coeff of Edi 13.7 Plt Count 259 MPV 10.5 H COVID-19 Eval Order SARS-CoV-2, RNA, NAAT NEGATIVE Blood Type O Negative Antibody Screen Cancelled Antibody Identification Antibody ID Comment Screen Negative 10/13/20 05:43 WBC RBC Hgb 10.3 L Hct 31.0 L MCV MCH MCHC RDW Std Deviation RDW Coeff of Edi Plt Count MPV COVID-19 Eval Order SARS-CoV-2, RNA, NAAT Blood Type Antibody Screen Antibody Identification Antibody ID Comment Screen
[2020-10-13] MEDS: DOCUSATE SODIUM 100 MG CAP PO SCH (08:45)
[2020-10-13] MEDS: PRENATAL VITAMIN 1 TAB PO SCH (08:46)
[2020-10-13] MEDS: ACETAMINOPHEN 325 MG TAB PO PRN ×2 (08:46→13:47)
[2020-10-13] MEDS: FERROUS SULFATE 325 MG TAB PO SCH (08:46)
== END 2020-10-13 18:47 | disposition home or self-care (01) | DRG 807 ==
LOC: OPB 20:38 → 4S1 20:40 → 4S2 10-11 03:15